=== PATIENT | female | born 1970 | race Caucasian/White ===

== ENCOUNTER 2017-09-11 07:20 | Emergency (ER) | payer OTHER ==
[~2017-09-11] VITALS: Ht 182.9 cm; Wt 110.0 kg
[~2017-09-11 07:20] MED LIST: ADDERALL XR 3030 MG PO; AUGMENTIN875 MG PO; LEVETIRACETAM500 MG PO; PREDNISONE20 MG PO; PROVENTIL,2.5 MG/3 M IH; PROVENTIL2.5 MG/3 M IH; SYMBICORT60 INHALAT IH; TORADOL10 MG PO; TRAZODONE HCL100 MG PO; ZOLOFT100 MG PO
[2017-09-11 08:04] LABS: HEMATOCRIT 43.7 % (36.0-46.0); MCH 30.3 PG (29.0-34.0); MEAN PLAT.VOLUME 10.7 uM^3 (9.5-12.4); PLATELET COUNT 283 K/uL (156-360); RBC DIS.WIDTH-CV 13.6 % (11.8-14.6); RBC DIS.WIDTH-SD 46.6 % (39-53); RED BLOOD COUNT 4.75 M/uL (3.80-5.20); WHITE BLOOD COUNT 8.8 K/uL (4.1-10.2)
[2017-09-11 08:36] LABS: ANION GAP 7 MEQ/L (2-14); CHLORIDE 103 MEQ/L (99-109); GFR ESTIMATE (CALCULATED) > 59 mL/min/; GLUCOSE 119 mg/dL (70-99); POTASSIUM 4.4 MEQ/L (3.7-5.4); SAMPLE HEMOLYSIS CHECK 0; SAMPLE ICTERIC CHECK 0; SAMPLE LIPEMIA CHECK 0; SODIUM 139 MEQ/L (136-147); UREA NITROGEN (BUN) 13 mg/dL (9-23)
[2017-09-11 09:48] LABS: ADD MIUA? NO; BILIRUBIN NEGATIVE; BLOOD NEGATIVE; COLOR YELLOW ((YELLOW)); GLUCOSE (STRIP) NEGATIVE; KETONES NEGATIVE; LEUKOCYTES NEGATIVE; NITRITE NEGATIVE; PROTEIN (STRIP) NEGATIVE; SPECIFIC GRAVITY 1.017 (1.000-1.030); UCUL ADDED? NO; UROBILINOGEN 0.2 MG/DL (0.2-1.0)
[2017-09-11] MEDS ORDERED: KEPPRA500 MG PO (10:43)
[2017-09-11 11:18] VITALS: BP 123/71
== END 2017-09-11 11:33 | disposition home or self-care (01) ==
LOC: EME 07:20
PROVIDERS: Emergency Medicine
DX: R56.9 Unspecified convulsions (principal); J45.909 Unspecified asthma, uncomplicated; F32.9 Major depressive disorder, single episode, unspecified; F90.9 Attention-deficit hyperactivity disorder, unspecified type; F17.200 Nicotine dependence, unspecified, uncomplicated
CPT/HCPCS: 70450; 71010; 80048; 81003; 85027; 99281; 99285

== ENCOUNTER 2018-02-10 10:47 | Emergency (ER) | payer OTHER ==
[~2018-02-10] VITALS: Ht 175.3 cm; Wt 101.8 kg
[~2018-02-10 10:47] MED LIST changes: +KEPPRA500 MG PO
[2018-02-10 12:02] LABS: HEMATOCRIT 45.4 % (36.0-46.0); HEMOGLOBIN 14.9 G/DL (11.9-15.5); MCH 29.5 PG (29.0-34.0); MCHC 32.8 G/DL (30.0-36.0); MCV 89.9 FL (83-99); RBC DIS.WIDTH-CV 15.1 % (11.8-14.6); RBC DIS.WIDTH-SD 49.9 % (39-53); RED BLOOD COUNT 5.05 M/uL (3.80-5.20); WHITE BLOOD COUNT 7.4 K/uL (4.1-10.2)
[2018-02-10 12:12] LABS: CHLORIDE 104 mEq/L (99-109); POTASSIUM 4.1 mEq/L (3.7-5.4); SODIUM 140 mEq/L (136-147)
[2018-02-10 12:14] LABS: GLUCOSE 90 mg/dL (70-99)
[2018-02-10 12:18] LABS: CREATININE 0.7 mg/dL (0.6-1.3); GFR ESTIMATE (CALCULATED) > 59 mL/min/
[2018-02-10 12:19] LABS: UREA NITROGEN (BUN) 7 mg/dL (9-23)
[2018-02-10 12:48] LABS: PLAT.SUFFICIENCY ADEQUATE; PLATELET COUNT 267 K/uL (156-360)
[2018-02-10] MEDS ORDERED: KEPPRA500 MG PO (13:43)
[2018-02-10 14:23] VITALS: BP 120/71
== END 2018-02-10 14:26 | disposition home or self-care (01) ==
LOC: EME 10:47
PROVIDERS: Emergency Medicine
DX: G40.909 Epilepsy, unspecified, not intractable, without status epilepticus (principal); J45.909 Unspecified asthma, uncomplicated; F32.9 Major depressive disorder, single episode, unspecified; F90.9 Attention-deficit hyperactivity disorder, unspecified type; F17.200 Nicotine dependence, unspecified, uncomplicated
CPT/HCPCS: 70450; 80048; 81003; 85027; 93005; 99281; 99284; J7030

== ENCOUNTER 2018-03-01 15:02 | Emergency (ER) | payer OTHER ==
[~2018-03-01] VITALS: Ht 180.3 cm; Wt 97.0 kg
[2018-03-01] MEDS ORDERED: LIDODERM 5% P1 PATCH TD (17:51)
[2018-03-01] MEDS ORDERED: NAPROSYN500 MG PO (17:51)
[2018-03-01] MEDS ORDERED: NORCO 5/3251 TABLET PO (17:51)
[2018-03-01] MEDS ORDERED: FLEXERIL10 MG PO (17:51)
[2018-03-01] MEDS ORDERED: VENTOLIN HFA18 GM IH (18:19)
[2018-03-01 18:30] VITALS: BP 119/79
== END 2018-03-01 18:31 | disposition home or self-care (01) ==
LOC: EME 15:02
DX: M54.41 Lumbago with sciatica, right side (principal); W10.9XXA Fall (on) (from) unspecified stairs and steps, initial encounter; R05 Cough; F17.200 Nicotine dependence, unspecified, uncomplicated; J45.909 Unspecified asthma, uncomplicated
CPT/HCPCS: 71046; 94640; 99281; 99283; J1885

== ENCOUNTER 2018-05-12 09:12 | Day surgery (SDC) | payer OTHER ==
[~2018-05-12] VITALS: Ht 175.3 cm; Wt 90.2 kg
[~2018-05-12 09:12] MED LIST changes: +FLEXERIL10 MG PO; +LIDODERM 5% P1 PATCH TD; +MOBIC7.5 MG PO; +NAPROSYN500 MG PO; +NEURONTIN300 MG PO; +NORCO 5/3251 TABLET PO; +OXAYDO7.5 MG PO; +ROBAXIN750 MG PO; +VENTOLIN HFA18 GM IH
[2018-05-12 09:34] VITALS: BP 111/60
[2018-05-12] MEDS ORDERED: OXYCODONE-APAP1 EACH PO (13:28)
[2018-05-12] MEDS ORDERED: NEURONTIN300 MG PO (13:28)
[2018-05-12 14:50] VITALS: BP 123/77
[2018-05-12 15:27] VITALS: BP 111/72
[2018-05-12 16:24] VITALS: BP 113/67
== END 2018-05-12 16:26 | disposition home or self-care (01) ==
LOC: SDC 09:12
PROC: 0SB20ZZ Excision of Lumbar Vertebral Disc, Open Approach (ICD-10-PCS; principal; 2018-05-12)
PROC: 01NB0ZZ Release Lumbar Nerve, Open Approach (ICD-10-PCS; principal; 2018-05-12)
DX: M51.17 Intervertebral disc disorders with radiculopathy, lumbosacral region (principal); M51.16 Intervertebral disc disorders with radiculopathy, lumbar region; J45.909 Unspecified asthma, uncomplicated; F17.210 Nicotine dependence, cigarettes, uncomplicated; D33.2 Benign neoplasm of brain, unspecified
CPT/HCPCS: 72020; 76000; J0131; J0690; J1100; J1170; J1885; J2405; J3010